=== PATIENT | male | born 1970 ===

== ENCOUNTER 2019-07-20 10:33 | Emergency (ER) | payer SELFPAY ==
[2019-07-20 10:37] VITALS: BP 138/81
[2019-07-20] MEDS ORDERED: oxyCODONE /ACETAMINOPHEN 5-325MG TAB PO ONE (11:27)
--- NOTE | 2019-07-20 12:29 | XRay Report ---
LUMBAR SPINE 3 VIEWS INDICATION / CLINICAL INFORMATION: back pain. COMPARISON: None available. FINDINGS: VERTEBRAE: No fracture. No significant malalignment. DISC SPACES:Moderate discogenic degenerative disease L5-S1. Mild discogenic degenerative disease L1-4 FACET JOINTS:No significant abnormality. ADDITIONAL FINDINGS: None. IMPRESSION: 1. No significant abnormality. Signer Name: Claudio Mcnamara MD Signed: 07/20/2019 12:24 PM Workstation Name: [id number]
--- NOTE | 2019-07-20 12:51 | Emergency Department Report ---
ED General Adult HPI - General Chief complaint: Back Pain/Injury Stated complaint: LOWER BACK PAIN Time Seen by Provider: 07/20/19 10:56 Source: patient, family Mode of arrival: Ambulatory Limitations: Language Barrier - History of Present Illness Initial comments: She is a 49-year-old male who presents with left flank pain that has been going on for last 2 days. 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 Patient's pain is moderate patient denies having any trauma to his back and he denies having any nausea or vomiting. Severity scale (0 -10): 10 - Related Data Previous Rx's Medication Instructions Recorded Last Taken Type Naproxen [Naprosyn TAB] 375 mg PO BID #30 tablet 07/20/19 Unknown Rx Allergies Allergy/AdvReac Type Severity Reaction Status Date / Time No Known Allergies Allergy Unverified 07/20/19 10:35 ED Review of Systems ROS: Stated complaint: LOWER BACK PAIN Other details as noted in HPI Constitutional: denies: chills, fever Eyes: denies: eye pain, eye discharge, vision change ENT: denies: ear pain, throat pain Respiratory: denies: cough, shortness of breath, wheezing Cardiovascular: denies: chest pain, palpitations Endocrine: no symptoms reported Gastrointestinal: denies: abdominal pain, nausea, diarrhea Genitourinary: denies: urgency, dysuria Musculoskeletal: denies: back pain, joint swelling, arthralgia Skin: denies: rash, lesions Neurological: denies: headache, weakness, paresthesias Psychiatric: denies: anxiety, depression Hematological/Lymphatic: denies: easy bleeding, easy bruising ED Past Medical Hx - Past Medical History Previous Medical History?: No - Surgical History Past Surgical History?: Yes Additional Surgical History: Left inquinal hernia - Social History Smoking Status: Never Smoker Substance Use Type: None - Medications Home Medications: Home Medications Medication Instructions Recorded Confirmed Last Taken Type Naproxen [Naprosyn TAB] 375 mg PO BID #30 tablet 07/20/19 Unknown Rx ED Physical Exam - General Limitations: Language Barrier General appearance: alert, in no apparent distress - Head Head exam: Present: atraumatic, normocephalic - Eye Eye exam: Present: normal appearance - ENT ENT exam: Present: mucous membranes moist - Neck Neck exam: Present: normal inspection - Respiratory Respiratory exam: Present: normal lung sounds bilaterally. Absent: respiratory distress - Cardiovascular Cardiovascular Exam: Present: regular rate, normal rhythm. Absent: systolic murmur, diastolic murmur, rubs, gallop - GI/Abdominal GI/Abdominal exam: Present: soft, normal bowel sounds - Rectal Rectal exam: Present: deferred - Extremities Exam Extremities exam: Present: normal inspection - Back Exam Back exam: Present: normal inspection - Neurological Exam Neurological exam: Present: alert, oriented X3 - Psychiatric Psychiatric exam: Present: normal affect, normal mood - Skin Skin exam: Present: warm, dry, intact, normal color. Absent: rash ED Course Vital Signs 07/20/19 07/20/19 07/20/19 10:36 10:37 11:57 Temperature 97.8 F 97.8 F Pulse Rate 75 75 Respiratory 18 18 18 Rate Blood Pressure 138/81 Blood Pressure 138/81 [Right] O2 Sat by Pulse 96 96 Oximetry ED Medical Decision Making - Medical Decision Making Medical diagnosis: Lumbar sacral strain Differential medical diagnosis: UTI, psoas muscle strain I'll get x-ray oral pain medicine and urinalysis. Work up is unremarkable patient will be discharged home. Critical care attestation.: If time is entered above; I have spent that time in minutes in the direct care of this critically ill patient, excluding procedure time. ED Disposition Clinical Impression: Right flank pain Disposition: DC-01 TO HOME OR SELFCARE Is pt being admited?: No Does the pt Need Aspirin: No Condition: Stable Instructions: Flank Pain (ED) Prescriptions: Naproxen [Naprosyn TAB] 375 mg PO BID #30 tablet Referrals: PRIMARY CARE, [Primary Care Provider] - 3-5 Days Print Language: LIBYAN
[2019-07-20 14:14] LABS: Bilirubin,Urine NEG (Negative); Blood,Urine NEG (Negative); Color,Urine Yellow (Yellow); Mucus,Urine FEW /HPF; Protein,Urine <15 mg/dL mg/dL (Negative); Urobilinogen,Urine < 2.0 mg/dL (<2.0)
== END 2019-07-20 14:31 | disposition home or self-care (01) ==
LOC: ED 10:33
DX: R10.9 Unspecified abdominal pain (principal); Z98.890 Other specified postprocedural states; Z79.899 Other long term (current) drug therapy
CPT/HCPCS: 72100; 81001; 99284